=== PATIENT | male | born 1945 | race Caucasian/White ===

== ENCOUNTER 2017-12-12 20:59 | Emergency (ER) | payer OTHER ==
[~2017-12-12] VITALS: Ht 172.7 cm; Wt 85.3 kg
[2017-12-12] MEDS ORDERED: PAXIL20 MG (21:27)
== END 2017-12-13 00:01 | disposition home or self-care (01) ==
LOC: ER 20:59
DX: S90.112A Contusion of left great toe without damage to nail, initial encounter (principal); W18.09XA Striking against other object with subsequent fall, initial encounter; Y93.89 Activity, other specified; Y92.89 Other specified places as the place of occurrence of the external cause; Y99.8 Other external cause status